=== PATIENT | male | born 1955 | race Caucasian/White ===

== ENCOUNTER → 2016-09-24 06:40 | Day surgery (SDC) | payer BC ==
--- NOTE | 2016-09-21 10:16 | HP ---
CC: Dr. Martell; Dr. Ambriz; Dr. Sanchez DATE OF ADMISSION: 09/24/16 DATE OF : [birth year] - AGE: 61 years, male. ADMITTING DIAGNOSIS: Bladder tumor. PLANNED PROCEDURE: Transurethral resection of bladder tumor and right retrograde and right stent ins ertion. SURGEON: Dr. Skinner. HISTORY OF PRESENT ILLNESS: Alen Garcia is a 61-year-old gentleman who was evaluated and noted t o have a superficial-appearing bladder tumor adjacent to the right orifice. PAST MEDICAL HISTORY: Fairly extensive, most notably for recent pneumonia and respiratory failure r equiring intubation at [place]. Please see Dr. Sanchez's detailed note which has been faxed to [facility] y Surgery for all his medical and cardiac details. Other past medical history significant for: 1. Diabetes mellitus. 2. History of thyroid cancer. PAST SURGICAL HISTORY: Significant for MEDICATIONS ON ADMISSION: 1. Metformin 1000 mg bid. 2. NovoLog 25 units in a.m. and p.m. 3. Finasteride 5 mg a day. 4. Doxazosin 2 mg a day. 5. Levothyroxine 125 mcg two tablets every other day. 6. Glipizide 10 mg twice a day. 7. Atorvastatin 40 mg a day. 8. Hydralazine 50 mg bid. 9. Diltiazem 120 mg a day. 10. Aspirin 81 mg a day. 11. Spironolactone/hydrochlorothiazide 25/25 one tablet daily. ALLERGIES: 1. PENICILLIN. 2. VYTORIN. PHYSICAL EXAMINATION GENERAL: Exam reveals a pleasant, middle-aged gentleman. VITAL SIGNS: Blood pressure when seen in my office was 178/102 (he had an appointment to see Dr. Sean trujillo the day after this appointment with me), pulse 77 per minute, oxygen saturation 96% on room air . CARDIOVASCULAR: S1, S2. No murmurs. LUNGS: Clear bilaterally. ABDOMEN: Soft, without masses. IMPRESSION: A 61-year-old non-smoker with superficial bladder tumor adjacent to the right orifice. PLAN: Transurethral resection of bladder tumor and right stent insertion. [id number]/[facility] #: [id number]
[~2016-09-24 06:40] MED LIST: Acetaminophen IV 1GM/100ML * 100 ML IVPB ONE; Acetaminophen IV 1GM/100ML * 100 ML ONE; Buffered Lidocaine 0.9% SYRIN* 5 ML/SYR SYRINGE INTRADERM ONE; Buffered Lidocaine 0.9% SYRIN* 5 ML/SYR SYRINGE ONE; Cisatracurium* 2 MG/ML MDV 5 ML ONE; Dexamethasone IV* 4 MG/ML 1 ML (4 MG) ONE; EPHEDrine (Pressors)* 50 MG/ML VIAL ONE; Famotidine IV* 10 MG/ML 2 ML (20 mg) IV ONE; Famotidine IV* 10 MG/ML 2 ML (20 mg) ONE; Flumazenil* 0.1 MG/ML 5 ML MDV ONE; Furosemide IV* 10 MG/ML 2 ML VIAL (20 MG) ONE; Glycopyrrolate IV* 0.2 MG/ML 1 ML VIAL ONE; Iohexol 180 (CONTRAST) 10 ML SDV IV ONE; KETAMINE HCL* 50 MG/ML 10 ML VIAL ONE; Ketorolac INJ* 30 MG/ML 1 ML VIAL ONE; Levofloxacin 500 MG IVPREMIX(* 500 MG/100 ML BAG IVPB ONE; Lidocaine 2% PF * 5 ML VIAL ONE; Metoclopramide TAB* 10 MG ONE; Metoclopramide TAB* 10 MG PO ONE; Midazolam* 1 MG/ML 5 ML VIAL (5 MG) ONE; Naloxone* 0.4 MG/ML 10 ML VIAL ONE; Neostigmine Methylsulfate* 2 MG/2 ML SYRINGE ONE; Ondansetron INJ* 2 MG/ML VIAL IV PRN; Ondansetron INJ* 2 MG/ML VIAL ONE; Phenylephrine IV* 40 MCG/ML 10 ML SYRINGE ONE; Propofol* 10 MG/ML 20 ML BTL IV PUSH ONE; fentaNYL* 50 MCG/ML 2 ML VIAL (100 MCG VIAL) ONE
--- NOTE | 2016-09-24 09:01 | RAD ---
INDICATION: RIGHT retrograde pyelogram and ureteral stent placement. COMPARISON: No relevant prior exams available on the [facility] PACS for comparison. TECHNIQUE: 7 seconds fluoroscopy. FINDINGS: RIGHT retrograde pyelogram documents. Negative for significant caliectasis. RIGHT ureteral stent placed. IMPRESSION: Procedural fluoroscopy. CPT II Codes: 6045F
[2016-09-24 13:56] VITALS: BP 155/79
--- NOTE | 2016-09-24 15:58 | OP ---
CC: Dr. Dillon Martell; Dr. Melo Ambriz; Dr. Christian Moore; Dr. Ken Sanchez * DATE OF OPERATION: 09/24/16 - [facility] DATE OF : 53 SURGEON: Miles Skinner MD ANESTHESIOLOGIST: Dr. Salazar. ANESTHESIA: General. PRE-OP DIAGNOSES: 1. Bladder tumor. 2. Hematuria. POST-OP DIAGNOSES: 1. Bladder tumor. 2. Hematuria. 3. Enlarged prostate. OPERATIVE PROCEDURE: 1. Cystoscopy, transurethral resection and fulguration of bladder tumor (2 to 3 cm). 2. Right retrograde pyelogram and right stent insertion. COMPLICATIONS: None. STENTS USED: A 6-[place] stent right ureter. OPERATIVE FINDINGS: 1. Enlarged prostate. 2. 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 INDICATION: Alen Garcia is a 61-year-old gentleman who was evaluated and noted to have hematuria. Flexible cystoscopy in my office revealed low-grade superficial tumor adjacent to the right orifice. DESCRIPTION OF PROCEDURE: After induction of general anesthesia, the patient was placed in dorsal lithotomy position. Sequential compression devices were in place and functioning. Initial cystoscopy revealed a normal urethra, moderate to markedly enlarged prostate. The bladder was examined. The right and left ureteral orifices are normal in position and configuration. Just medial to the right orifice there was a low-grade superficial-appearing neoplasm. There was no evidence of any invasive or high-grade appearing tumor. A guidewire was introduced into the right orifice, retrograde pyelogram did not reveal any filling defects or obstruction. A 6-[place] stent was introduced and positioned under fluoroscopy with good proximal and distal positioning obtained. Next, using a biopsy forceps, correspondence representative biopsies were obtained and sent for histopathology. The resectoscope was introduced and all visible tumor was resected and/or fulgurated. At the end of the procedure, there was no remaining visible tumor and hemostasis appeared satisfactory. There was no evidence of bladder perforation. A Rivera catheter was placed for temporary bladder drainage. The patient tolerated the procedure satisfactorily and was transferred back to the recovery area in stable condition. [id number]/[facility] #: [id number] MTDD
== END | disposition home or self-care (01) ==
LOC: OR 06:40
PROVIDERS: ATTEND Urology
DX: N32.89 Other specified disorders of bladder (principal); E11.9 Type 2 diabetes mellitus without complications; Z79.84 Long term (current) use of oral hypoglycemic drugs; I10 Essential (primary) hypertension; I34.0 Nonrheumatic mitral (valve) insufficiency; I25.10 Atherosclerotic heart disease of native coronary artery without angina pectoris
CPT/HCPCS: 74420; 88305; A9270-GY; C1876; J1100; J1580; J1885; J1940; J1956; J2250; J2310; J2405; J2704; J3010